=== PATIENT | female | born 1970 | race Caucasian/White ===

== ENCOUNTER → 2017-08-10 | Outpatient (CLI) | payer OTHER ==
[~2017-08-10] MED LIST: ALBU90OI INH; ALBU90OI6 INH; ALBU90OI61 INH; ALPR1 PO; Augmentin 875-1 EACH PO; Bactrim Ds Tab1 EACH PO; CIPRO500 MG PO; CYCL10 PO; DOXY100 PO; DULERA 100 MCG/13 GM INH; ESCI10 PO; FAMO20 PO; GABA300 PO; IBUP600 PO; LEVFLO500 PO; LORA10ER PO; Levaquin500 MG PO; Lexapro PO; MONT10T PO; Norco 5-325 Ta1 EACH PO; ONDA8ODT MM; OXYC5 PO; PRED10 PO; PRED20 PO; PROM25 PO; Percocet 10-321 EACH PO; Prednisone20 MG PO; TIOT18; TRAM50 PO; Zofran8 MG PO
[2017-08-10 18:25] LABS: BASOPHILS ABSOLUTE AUTO 0.03 K/mm3 (0.00-0.23); BASOPHILS PERCENT AUTO 0 % (0-2); EOSINOPHILS PERCENT AUTO 0 % (0-6); Hematocrit 43.1 % (33.0-51.0); IMMATURE GRAN ABSOLUTE AUTO 0.04 K/mm3 (0.00-0.10); IMMATURE GRAN PERCENT AUTO 0 % (0-1); LYMPHOCYTES ABSOLUTE AUTO 1.44 K/mm3 (0.84-5.20); LYMPHOCYTES PERCENT AUTO 14 % (21-46); MONOCYTES PERCENT AUTO 4 % (4-13); Mean Corpuscular HGB 32.5 pg (26.0-34.0); Mean Corpuscular HGB Conc 34.8 g/dL (31.5-36.5); Mean Corpuscular Volume 93 fL (80-100); Mean Platelet Volume 10.1 fL (9.1-12.4); NEUTROPHILS ABSOLUTE AUTO 8.43 K/mm3 (1.96-9.15); NEUTROPHILS PERCENT AUTO 82 % (41-73); Platelet Count 248 K/mm3 (150-400); RDW Coefficient Variation 12.5 % (11.7-14.2); Red Blood Cell Count 4.62 M/mm3 (3.80-5.20); White Blood Cell Count 10.34 K/mm3 (4.00-11.30)
[2017-08-10 18:38] LABS: Alanine Aminotransfer (ALT/SGP 33 U/L (12-78); Albumin, Blood 3.7 g/dL (3.4-5.0); Alk Phos 63 U/L (40-126); Anion Gap 11 mmol/L (6-16); Aspartate Aminotrans (AST/SGOT 29 U/L (12-37); Bilirubin, Total 0.6 mg/dL (0.1-1.0); Blood Urea Nitrogen 7 mg/dL (8-24); Bun/Creatinine Ratio 11.3 (12.0-20.0); CO2, Blood 27 mmol/L (21-32); Calcium, Blood 8.6 mg/dL (8.5-10.1); Chloride, Blood 101 mmol/L (98-108); Creatinine, Blood 0.62 mg/dL (0.40-1.00); Globulin, Blood 3.8 g/dL (2.2-4.0); Glomerular Filtration Rate >60 (60-); Glucose, Blood 93 mg/dL (70-99); Sodium, Blood 139 mmol/L (136-145); Total Protein, Blood 7.5 g/dL (6.4-8.2)
[2017-08-10 18:39] LABS: Troponin I <0.017 ng/mL (0.000-0.040)
== END | disposition home or self-care (01) ==
LOC: LAB EV 18:19 → LAB SHORT 18:19
PROVIDERS: Physician Assistant Medical
DX: R10.13 Epigastric pain (principal)
CPT/HCPCS: 80053; 83690; 84484; 85025

== ENCOUNTER 2018-07-15 07:44 | Emergency (ER) | payer OTHER ==
[~2018-07-15] VITALS: Ht 165.1 cm; Wt 81.7 kg
[2018-07-15] MEDS ORDERED: Abilify2 MG PO (08:20)
[2018-07-15 09:26] LABS: Source, Urine Clean Catch
[2018-07-15 09:33] LABS: Appearance, Urine Clear (Clear); Bilirubin, Urine Neg (Neg); Blood, Urine Neg (Neg); Color, Urine Yellow (P-Yellow); Glucose Qualitative, Urine Neg (Neg); Ketones, Urine Neg (Neg); Leukocyte Esterase, Urine Neg (Neg); Nitrite, Urine Neg (Neg); Protein, Urine Neg (Neg); Urobilinogen, Urine NORM (Normal)
[2018-07-15 09:58] LABS: Alanine Aminotransfer (ALT/SGP 26 U/L (12-78); Albumin, Blood 3.8 g/dL (3.4-5.0); Alk Phos 61 U/L (50-136); Anion Gap 5 mmol/L (6-16); Aspartate Aminotrans (AST/SGOT 16 U/L (12-37); Bilirubin, Total 0.9 mg/dL (0.1-1.0); Blood Urea Nitrogen 10 mg/dL (8-24); CO2, Blood 28 mmol/L (21-32); Calcium, Blood 8.9 mg/dL (8.5-10.1); Chloride, Blood 99 mmol/L (98-108); Creatinine, Blood 0.56 mg/dL (0.40-1.00); Globulin, Blood 3.8 g/dL (2.2-4.0); Glomerular Filtration Rate >60 (60-); Glucose, Blood 93 mg/dL (70-99); Potassium, Blood 4.1 mmol/L (3.5-5.5); Sodium, Blood 132 mmol/L (136-145); Total Protein, Blood 7.6 g/dL (6.4-8.2)
[2018-07-15 10:01] LABS: BASOPHILS ABSOLUTE AUTO 0.06 K/mm3 (0.00-0.23); BASOPHILS PERCENT AUTO 0 % (0-2); EOSINOPHILS ABSOLUTE AUTO 0.12 K/mm3 (0.00-0.68); EOSINOPHILS PERCENT AUTO 1 % (0-6); Hematocrit 41.2 % (33.0-51.0); Hemoglobin 13.5 g/dL (11.5-16.0); IMMATURE GRAN ABSOLUTE AUTO 0.05 K/mm3 (0.00-0.10); IMMATURE GRAN PERCENT AUTO 0 % (0-1); LYMPHOCYTES ABSOLUTE AUTO 1.86 K/mm3 (0.84-5.20); LYMPHOCYTES PERCENT AUTO 14 % (21-46); MONOCYTES ABSOLUTE AUTO 1.09 K/mm3 (0.16-1.47); MONOCYTES PERCENT AUTO 8 % (4-13); Mean Corpuscular HGB 31.8 pg (26.0-34.0); Mean Corpuscular HGB Conc 32.8 g/dL (31.5-36.5); Mean Corpuscular Volume 97 fL (80-100); Mean Platelet Volume 9.9 fL (9.1-12.4); NEUTROPHILS ABSOLUTE AUTO 10.53 K/mm3 (1.96-9.15); NEUTROPHILS PERCENT AUTO 77 % (41-73); Platelet Count 221 K/mm3 (150-400); RDW Coefficient Variation 13.4 % (11.7-14.2); RDW Standard Deviation 48.2 fL (35.1-46.3); Red Blood Cell Count 4.25 M/mm3 (3.80-5.20); White Blood Cell Count 13.71 K/mm3 (4.00-11.30)
[2018-07-15] MEDS ORDERED: Norco 5-325 Ta1 EACH PO (12:34)
[2018-07-15] MEDS ORDERED: Bactrim 400-801 EACH PO (12:34)
[2018-07-15] MEDS ORDERED: Keflex500 MG PO (12:34)
== END 2018-07-15 13:20 | disposition home or self-care (01) ==
LOC: ER 07:44
PROVIDERS: Emergency Medicine
DX: K61.1 Rectal abscess (principal); J44.9 Chronic obstructive pulmonary disease, unspecified; F17.210 Nicotine dependence, cigarettes, uncomplicated; Z79.899 Other long term (current) drug therapy; Z90.710 Acquired absence of both cervix and uterus
CPT/HCPCS: 36415; 56405; 76882; 80053; 81003; 81025; 85025; 99283-25; J1170; J2405; J7120

== ENCOUNTER 2019-01-11 14:02 | Inpatient (IN) | payer OTHER ==
[~2019-01-11] VITALS: Ht 165.1 cm; Wt 92.2 kg
[~2019-01-11 14:02] MED LIST changes: +Abilify2 MG PO; +Bactrim 400-801 EACH PO; +Keflex500 MG PO
[2019-01-11 14:41] LABS: BASOPHILS ABSOLUTE AUTO 0.07 K/mm3 (0.00-0.23); BASOPHILS PERCENT AUTO 1 % (0-2); EOSINOPHILS ABSOLUTE AUTO 0.32 K/mm3 (0.00-0.68); EOSINOPHILS PERCENT AUTO 4 % (0-6); Hematocrit 44.6 % (33.0-51.0); Hemoglobin 14.5 g/dL (11.5-16.0); IMMATURE GRAN ABSOLUTE AUTO 0.03 K/mm3 (0.00-0.10); IMMATURE GRAN PERCENT AUTO 0 % (0-1); LYMPHOCYTES PERCENT AUTO 19 % (21-46); MONOCYTES ABSOLUTE AUTO 0.52 K/mm3 (0.16-1.47); MONOCYTES PERCENT AUTO 6 % (4-13); Mean Corpuscular HGB 31.7 pg (26.0-34.0); Mean Corpuscular HGB Conc 32.5 g/dL (31.5-36.5); Mean Corpuscular Volume 97 fL (80-100); Mean Platelet Volume 9.9 fL (9.1-12.4); NEUTROPHILS ABSOLUTE AUTO 6.15 K/mm3 (1.96-9.15); NEUTROPHILS PERCENT AUTO 70 % (41-73); Platelet Count 265 K/mm3 (150-400); Red Blood Cell Count 4.58 M/mm3 (3.80-5.20); White Blood Cell Count 8.79 K/mm3 (4.00-11.30)
[2019-01-11] MEDS ORDERED: ESCI10 PO (14:51)
[2019-01-11] MEDS ORDERED: OMEP20ER PO (14:52)
[2019-01-11] MEDS ORDERED: VENL75ER PO (14:52)
[2019-01-11] MEDS ORDERED: TRAZ100 PO (14:52)
[2019-01-11 15:01] LABS: Alanine Aminotransfer (ALT/SGP 36 U/L (12-78); Albumin, Blood 3.8 g/dL (3.4-5.0); Albumin/Globulin Ratio 1.1 (0.8-1.8); Alk Phos 50 U/L (50-136); Anion Gap 7 mmol/L (6-16); Aspartate Aminotrans (AST/SGOT 21 U/L (12-37); Bilirubin, Total 0.2 mg/dL (0.1-1.0); Blood Urea Nitrogen 8 mg/dL (8-24); Bun/Creatinine Ratio 14.6 (12.0-20.0); CO2, Blood 29 mmol/L (21-32); Calcium, Blood 9.2 mg/dL (8.5-10.1); Chloride, Blood 105 mmol/L (98-108); Creatinine, Blood 0.55 mg/dL (0.40-1.00); Globulin, Blood 3.6 g/dL (2.2-4.0); Glomerular Filtration Rate >60 (60-); Glucose, Blood 124 mg/dL (70-99); Potassium, Blood 4.1 mmol/L (3.5-5.5); Sodium, Blood 141 mmol/L (136-145); Total Protein, Blood 7.4 g/dL (6.4-8.2)
--- NOTE | 2019-01-11 18:06 | NUR ---
PT ADMITTED/SHIFT SUMMARY PT ADMITTED AT 1725. PT IN STABLE CONDITION WITH VSS. PT ORIENTED TO ROOM. CALL LIGHT IN REACH. PT EATING DINNER AT THIS TIME. PT CURRENTLY ON 1L O2 VIA NC TO MAINTAIN 92% SATURATION. IV ANTIBIOTICS STARTED. CONT PULSE OX IN PLACE. WILL CONTINUE TO MONITOR UNTIL TURNOVER IS COMPLETE.
--- NOTE | 2019-01-12 04:57 | NUR ---
CLINICAL NURSING DIRECTOR SUMMARY PT A/OX4. PLEASANT AND COOPERATIVE. PT HAD TEMP OF 99.0 AT BEGINNING OF SHIFT AND HR IN THE 110'S. PT ALSO RECIEVED BREATHING TREATMENTS PRIOR TO VITALS. DENIES SOB. PT STATED SHE FELT FEVERISH, DENIES CHILLS. WET WASHCLOTH APPLIED TO FOREHEAD. PT STATED SHE FELT BETTER AFTER WET WASHCLOTH APPLIED. VITALS STABLE THIS MORNING. SLEPT WELL THROUGHOUT THE NIGHT. WILL CONTINUE TO MONITOR. CURRENTLY ON 1 L O2 AND CONTINOUS PULSE OX.
[2019-01-12 05:00] LABS: BASOPHILS ABSOLUTE AUTO 0.03 K/mm3 (0.00-0.23); BASOPHILS PERCENT AUTO 0 % (0-2); EOSINOPHILS PERCENT AUTO 0 % (0-6); Hematocrit 42.3 % (33.0-51.0); Hemoglobin 13.8 g/dL (11.5-16.0); IMMATURE GRAN ABSOLUTE AUTO 0.08 K/mm3 (0.00-0.10); IMMATURE GRAN PERCENT AUTO 1 % (0-1); LYMPHOCYTES ABSOLUTE AUTO 1.34 K/mm3 (0.84-5.20); LYMPHOCYTES PERCENT AUTO 10 % (21-46); MONOCYTES ABSOLUTE AUTO 0.62 K/mm3 (0.16-1.47); MONOCYTES PERCENT AUTO 5 % (4-13); Mean Corpuscular HGB 32.5 pg (26.0-34.0); Mean Corpuscular HGB Conc 32.6 g/dL (31.5-36.5); Mean Platelet Volume 10.1 fL (9.1-12.4); NEUTROPHILS ABSOLUTE AUTO 11.15 K/mm3 (1.96-9.15); NEUTROPHILS PERCENT AUTO 84 % (41-73); Platelet Count 281 K/mm3 (150-400); RDW Coefficient Variation 13.2 % (11.7-14.2); RDW Standard Deviation 48.4 fL (35.1-46.3); Red Blood Cell Count 4.25 M/mm3 (3.80-5.20); White Blood Cell Count 13.22 K/mm3 (4.00-11.30)
[2019-01-12 05:05] LABS: Mean Corpuscular Volume 100 fL (80-100)
[2019-01-12 05:32] LABS: Alanine Aminotransfer (ALT/SGP 31 U/L (12-78); Albumin, Blood 3.6 g/dL (3.4-5.0); Alk Phos 42 U/L (50-136); Anion Gap 9 mmol/L (6-16); Aspartate Aminotrans (AST/SGOT 14 U/L (12-37); Bilirubin, Total 0.2 mg/dL (0.1-1.0); Blood Urea Nitrogen 11 mg/dL (8-24); Bun/Creatinine Ratio 18.5 (12.0-20.0); CO2, Blood 27 mmol/L (21-32); Calcium, Blood 9.2 mg/dL (8.5-10.1); Chloride, Blood 104 mmol/L (98-108); Globulin, Blood 3.6 g/dL (2.2-4.0); Glomerular Filtration Rate >60 (60-); Glucose, Blood 114 mg/dL (70-99); Potassium, Blood 4.4 mmol/L (3.5-5.5); Sodium, Blood 140 mmol/L (136-145); Total Protein, Blood 7.2 g/dL (6.4-8.2)
--- NOTE | 2019-01-12 09:00 | NUR ---
LEFT MESSAGE ON 'S VOICE MAIL THAT PATIENT IS A SMOKER AND WOULD LIKE NICOTINE PATCH. SMOKES ABOUT 7 CIGS A DAY. AWAITING CALLBACK OR ORDERS.
--- NOTE | 2019-01-12 19:13 | NUR ---
ALERT. ORIENTED. ON CONTINUOUS SAT. INS/EXP WHEEZES T/O. STEADY GAIT IN HALLWAY AND HAS BEEN OUTSIDE TODAY. INDEPENDENT IN SHOWER. ABLE TO MAKE NEEDS KNOWN. REPORT TO NIGHT RN
--- NOTE | 2019-01-13 04:03 | NUR ---
SHIFT SUMMARY PT CONTINUES TO HAVE WHEEZES NOTED. PT HAS BEEN ABLE TO SLEEP THIS SHIFT. PT MAY BENEFIT FROM HAVING A HOME O2 EVAL DONE. PT HAD NO NEW ISSUES OR COMPLAINTS. PT RESPONDS WELL TO BREATHING TX'S. PT CURRENTLY RESTING AND BREATHING EASY. CALL LIGHT IN REACH.
--- NOTE | 2019-01-13 17:26 | NUR ---
SHIFT SUMMARY COARSE LUNG SOUNDS. SMOKER WITH NICOTINE PATCH IN PLACE. INDEPENDENT IN ROOM. OX4. PLEASANT. DENIES ANY PAIN. POSSIBLE HOME 02 EVAL PRIOR TO DISCHARGE.
--- NOTE | 2019-01-14 04:44 | NUR ---
SHIFT SUMMARY PT REPORTS FEELING BETTER THIS SHIFT. PT HAS BEEN ABLE TO SLEEP WELL THIS SHIFT. PT LS STILL COARSE WITH WHEEZES. PT RESPONDS WELL TO RT TX'S. PT CURRENTLY RESTING COMFORTABLY. CALL LIGHT IN REACH.
[2019-01-14] MEDS ORDERED: ACET325 PO (12:23)
[2019-01-14] MEDS ORDERED: BENZ100A PO (12:24)
[2019-01-14] MEDS ORDERED: GUAI600T33 PO (12:25)
[2019-01-14] MEDS ORDERED: Nicoderm Cq1 EAC1 TOP (12:26)
[2019-01-14] MEDS ORDERED: ALBU2.5V5 INH (12:28)
[2019-01-14] MEDS ORDERED: Prednisone10 MG PO (12:34)
[2019-01-14] MEDS ORDERED: Sulfamethoxazo1 EAC4 PO (12:35)
[2019-01-14] MEDS ORDERED: SPIRIVA RESPIMAT4 GM INH (12:36)
--- NOTE | 2019-01-14 14:42 | NUR ---
PT LEFT UNIT AT 1430. PT AMBULATED PER REQUEST WITH FRIEND. REVIEWED DISCHARGE INSTRUCTIONS. NO QUESTIONS AT THIS TIME. MEDICATIONS FAXED TO [facility] IN [place]. IV REMOVED.
== END 2019-01-14 14:45 | disposition home or self-care (01) | DRG 189 ==
LOC: ER 14:02 → MEDS 16:42 → ENPENDDIS 01-14 11:08 → MEDS 01-14 14:45
PROVIDERS: Physician Assistant; ADMIT Internal Medicine
DX: J96.21 Acute and chronic respiratory failure with hypoxia (principal); J44.1 Chronic obstructive pulmonary disease with (acute) exacerbation; J44.0 Chronic obstructive pulmonary disease with (acute) lower respiratory infection; B95.62 Methicillin resistant Staphylococcus aureus infection as the cause of diseases classified elsewhere; F17.210 Nicotine dependence, cigarettes, uncomplicated; F41.9 Anxiety disorder, unspecified; J20.9 Acute bronchitis, unspecified
CPT/HCPCS: 36415; 71046; 80053; 85025; 87070; 87077; 87147; 87186; 87205; 90686; 93005; 93010; 94640; 94644; 94762; 96374; 99285-25; A9270; J0696; J1650; J2405; J2930; J7050; J7512

== ENCOUNTER 2019-02-18 13:32 | Inpatient (IN) | payer OTHER ==
[~2019-02-18] VITALS: Ht 165.1 cm; Wt 96.2 kg
[~2019-02-18 13:32] MED LIST changes: +ACET325 PO; +ALBU2.5V5 INH; +BENZ100A PO; +GUAI600T33 PO; +NICO21TP TOP; +OMEP20ER PO; +Prednisone10 MG PO; +SPIRIVA RESPIMAT4 GM INH; +Sulfamethoxazo1 EAC4 PO; +TRAZ100 PO; +VENL75ER PO
[2019-02-18 14:09] LABS: BASOPHILS ABSOLUTE AUTO 0.04 K/mm3 (0.00-0.23); BASOPHILS PERCENT AUTO 0 % (0-2); EOSINOPHILS ABSOLUTE AUTO 0.27 K/mm3 (0.00-0.68); EOSINOPHILS PERCENT AUTO 2 % (0-6); Hematocrit 45.8 % (33.0-51.0); Hemoglobin 14.6 g/dL (11.5-16.0); IMMATURE GRAN ABSOLUTE AUTO 0.06 K/mm3 (0.00-0.10); IMMATURE GRAN PERCENT AUTO 1 % (0-1); LYMPHOCYTES ABSOLUTE AUTO 2.94 K/mm3 (0.84-5.20); LYMPHOCYTES PERCENT AUTO 27 % (21-46); MONOCYTES ABSOLUTE AUTO 0.79 K/mm3 (0.16-1.47); MONOCYTES PERCENT AUTO 7 % (4-13); Mean Corpuscular HGB 31.9 pg (26.0-34.0); Mean Corpuscular HGB Conc 31.9 g/dL (31.5-36.5); Mean Corpuscular Volume 100 fL (80-100); Mean Platelet Volume 9.7 fL (9.1-12.4); NEUTROPHILS ABSOLUTE AUTO 7.01 K/mm3 (1.96-9.15); NEUTROPHILS PERCENT AUTO 63 % (41-73); Platelet Count 296 K/mm3 (150-400); RDW Standard Deviation 48.5 fL (35.1-46.3); Red Blood Cell Count 4.57 M/mm3 (3.80-5.20); White Blood Cell Count 11.11 K/mm3 (4.00-11.30)
[2019-02-18 14:25] LABS: PCO2 Arterial 59.5 mmHg (35-45); PO2 Arterial 95.7 mmHg (80-100); pH Blood Arterial 7.33 (7.35-7.45)
[2019-02-18 14:42] LABS: Alanine Aminotransfer (ALT/SGP 30 U/L (12-78); Alk Phos 53 U/L (50-136); Anion Gap 5 mmol/L (6-16); Aspartate Aminotrans (AST/SGOT 17 U/L (12-37); Bilirubin, Total 0.1 mg/dL (0.1-1.0); Blood Urea Nitrogen 11 mg/dL (8-24); Bun/Creatinine Ratio 18.7 (12.0-20.0); CO2, Blood 30 mmol/L (21-32); Calcium, Blood 9.7 mg/dL (8.5-10.1); Chloride, Blood 102 mmol/L (98-108); Creatinine, Blood 0.59 mg/dL (0.40-1.00); Globulin, Blood 4.1 g/dL (2.2-4.0); Glomerular Filtration Rate >60 (60-); Glucose, Blood 109 mg/dL (70-99); Potassium, Blood 4.4 mmol/L (3.5-5.5); Sodium, Blood 137 mmol/L (136-145); Total Protein, Blood 8.1 g/dL (6.4-8.2)
[2019-02-18] MEDS ORDERED: Prinivil10 MG PO (15:25)
[2019-02-18] MEDS ORDERED: Desyrel150 MG PO (16:02)
--- NOTE | 2019-02-18 18:47 | NUR ---
PT ARRIVAL. PT ARRIVED ON UNIT VIA GURNEY. PT WAS ON BIPAP AT 12/6 AND 30% FIO2. PT WAS C/O OF HEADACHE AND L SIDE/RIB PAIN FROM COUGHING. PT'S VS STABLE AT THIS TIME. L/S WHEEZES T/O ON BIPAP OR 4L NC. PT'S BASELINE O2 IS 1-2L NC. NO EDEMA IS NOTED ON ASSESSMENT. BT PRESENT AND HYPOACTIVE PT C/O OF NAUSEA. PT MEDICATED FOR PAIN AND NAUSEA PER EMAR. PT'S SISTER AT THE BEDSIDE. PT IS ABLE TO TALK IN SHORT SENTENCES BUT DESATS QUICKLY WITH TO MUCH TALKING. CALL LIGHT IN REACH, BED IS LOCKED AND LOW WILL CONTINUE TO MONITOR UNTIL REPORT IS GIVEN TO ONCOMING RN.
--- NOTE | 2019-02-18 20:27 | NUR ---
ASSUMED CARE OF PATIENT AT 1900 HRS, PATIENT AWAKE AND ALERT SITTING SIDE OF BED WITH SISTER IN ROOM. HR AND RESP'S ELEVATED, NO SIGNS NO REPORT OF DISTRESS, ALL OTHER VSS AND WNL. LUNGS SOUND COARSE WITH WHEEZES. PT C/O MILD HEADACHE AND LEFT ABD PAIN WHICH STARTED WITH A RECENT COUGHING FIT. WILL TREAT PER UNIT PROTOCOL AND MD ORDER, AND CONTINUE TO MONITOR.
--- NOTE | 2019-02-19 02:12 | NUR ---
AT MIDNIGHT ROUNDS PT C/O PAIN WITH COUGH, PAIN CENTERED LOWER LEFT ABD AT RIBS. PATIENT STATES PAIN ONLY WITH COUGH, AND THAT SHE GREATLY FEARS COUGHING. PT REPORTS COUGH MEDECINE "PEARLS" WORKED, BUT NOT COMPLETELY. A STRONGER COUGH SUPPRESSANT WAS APPROVED BY HOSPITALIST, PATIENT MEDICATED PER EMAR WITH NEW MED, AT 1/2 HOUR ASSESSMENT PATIENT SLEEPING.
[2019-02-19 04:25] LABS: BASOPHILS ABSOLUTE AUTO 0.03 K/mm3 (0.00-0.23); BASOPHILS PERCENT AUTO 0 % (0-2); EOSINOPHILS ABSOLUTE AUTO 0.01 K/mm3 (0.00-0.68); EOSINOPHILS PERCENT AUTO 0 % (0-6); Hematocrit 41.1 % (33.0-51.0); Hemoglobin 13.2 g/dL (11.5-16.0); IMMATURE GRAN ABSOLUTE AUTO 0.07 K/mm3 (0.00-0.10); IMMATURE GRAN PERCENT AUTO 1 % (0-1); LYMPHOCYTES ABSOLUTE AUTO 1.11 K/mm3 (0.84-5.20); LYMPHOCYTES PERCENT AUTO 9 % (21-46); MONOCYTES ABSOLUTE AUTO 0.45 K/mm3 (0.16-1.47); MONOCYTES PERCENT AUTO 4 % (4-13); Mean Corpuscular HGB 32.2 pg (26.0-34.0); Mean Corpuscular HGB Conc 32.1 g/dL (31.5-36.5); Mean Corpuscular Volume 100 fL (80-100); Mean Platelet Volume 9.7 fL (9.1-12.4); NEUTROPHILS ABSOLUTE AUTO 10.54 K/mm3 (1.96-9.15); NEUTROPHILS PERCENT AUTO 86 % (41-73); Platelet Count 273 K/mm3 (150-400); RDW Coefficient Variation 13.2 % (11.7-14.2); RDW Standard Deviation 48.7 fL (35.1-46.3); White Blood Cell Count 12.21 K/mm3 (4.00-11.30)
[2019-02-19 04:40] LABS: Anion Gap 6 mmol/L (6-16); Blood Urea Nitrogen 12 mg/dL (8-24); Bun/Creatinine Ratio 22.6 (12.0-20.0); CO2, Blood 30 mmol/L (21-32); Calcium, Blood 9.4 mg/dL (8.5-10.1); Chloride, Blood 99 mmol/L (98-108); Creatinine, Blood 0.53 mg/dL (0.40-1.00); Glomerular Filtration Rate >60 (60-); Glucose, Blood 128 mg/dL (70-99); Potassium, Blood 4.4 mmol/L (3.5-5.5); Sodium, Blood 135 mmol/L (136-145)
--- NOTE | 2019-02-19 05:58 | NUR ---
SHIFT SUMMARY NO ACUTE CHANGES IN PATIENT CONDITION SINCE ASSUMING CARE. AT AROUND 0500 PATIENT RETURNED FROM BATHROOM AND REQUESTED A BREAK FROM BIPAP, ELECTING TO SLEEP THE REMAINDER OF THE SHIFT WITH NC AT 4L, SHE FEELS CLAUSTROBPHOBIC WHITHIN THE BIPAP MASK. PT WAS EDUCATED TO THE BENEFITS OF BIPAP, AND MADE AWARE THAT IF HER SATS DROPPED BELOW 88% SHE WOULD RETURN TO THE BIPAP. PATIENT IS CURRENTLY SATURATING AT 94%, AND SLEEPING PEACEFULLY ON HER SIDE. ONLY ONE EPISODE OF COUGHING NOTED SINCE PT RECEIVED NEWLY ORDERED COUGH MEDICATION. WILL CONTINUE TO MONITOR AND WILL PASS REPORT AND CARE TO ONCOMING SHIFT AT 0700. BED IS LOCKED AND LOW, CALL LIGHT W/IN REACH
--- NOTE | 2019-02-19 17:41 | NUR ---
PT HAS MAINTAINED ADEQUATE SPO2 ON 4L NASAL CANNULA T/O THE DAY, PT WAS PLACED ON BIPAP FOR A BRIEF TIME WHICH WAS TOLERATED WELL. PT A/O X4 ANSWERING QUESTIONS APPROPRIATELY. PT DID BECOME VERY WHEEZY THIS AFTERNOON WHICH WAS RESOLVED WITH BREATHING TREATMENT. PT HASREQUIRED PAIN MEDICATION X TODAY FOR PAIN T/O BODY. STS SHE HAS CHRONIC PAIN ISSUES AT BASELINE
--- NOTE | 2019-02-19 19:45 | NUR ---
ASSUMED CARE OF PATIENT AT 1900 WITH REPORT FROM SHASHANK CLEMONS, PATIENT AWAKE AND ALERT SITING IN BED DISPLAYING MILD DYSPNEA, AUDIBLE WHEEZES WITH HER EXPIRATION. RESP'S TACHY AT 22/MIN, PULSE TACHY AT 97, ALL OTHER VSS AND WNL, 02 SATURATION AT 94% ON 4L VIA NC. PT REPORTS PAIN IN NECK AND HEAD IN ADDITION TO PAIN IN LEFT SIDE WHEN SHE COUGHS, CONSISTENT WITH HER RECENT HISTORY. BOTH PATIENT'S IV'S TESTED PATENT W/ 10NS AND SITES WNL. PATIENT'S SISTER IS IN ROOM. WILL MONITOR AND TREAT PER EMAR AND PROTOCOL
--- NOTE | 2019-02-20 05:53 | NUR ---
SHIFT SUMMARY PATIENT REMAINED IN BED EXCEPT FOR INDEPENDENT AMBULATION TO TOILET, ABOUT 4 TIMES PER PT REPORT. ONE EPISODE OF INCONTINENCE BROUGHT ABOUT BY COUGHING. PATIENT USES ROLLED BLANKET TO SPLINT SIDE WHEN COUGHING, BUT "DREADS" ONCOMING COUGHING FITS AND RATES PAIN TO LOWER LEFT RIBS WHILE COUGHING AT 9/10. WITH STATED PRIORITY OF GATHERING MAXIMUM REST AND SLEEP THIS NIGHT, PATIENT REQUESTED COUGH MEDICINE AND FENTANYL FREQUENTLY PRN EMAR ORDER ALLOWED. PATIENT UTILIZED BPAP WHEN SLEEPING, OR ATTEMPTING TO SLEEP, CHANGING TO 4L/NC DURING AND BRIEFLY AFTER EPISODES OF COUGHING. SATURATION LEVELS REMAINED ABOVE 90% FOR THE DURATION OF THE SHIFT. ADVENTITIOUS LUNG SOUNDS SUBSIDED PERIODICALLY T/O SHIFT, WITH AUDIBLE WHEEZES HEARD DURING PERIODS OF STRESS. OVERALL PATIENT REMAINED HOPEFUL, STATING THAT PAIN WHILE COUGHING WAS GENERALLY LESSENING, AND THAT REST AND MEDICATION WERE HELPING HER TO FEEL BETTER AND STRONGER. WILL CONTINUE TO ASSESS, MONITOR AND TREAT PER EMAR AND PROTOCOL UNTIL PASSING CARE AND REPORT TO ONCOMING SHIFT. BED IS LOCKED AND LOW, CALL LIGHT W/IN REACH
--- NOTE | 2019-02-20 08:03 | NUR ---
AM NOTE... ASSUMED CARE OF PT APROX 0700. PT IS A&Ox4 AND IND IN THE ROOM. PT WAS ADMITTED FOR COPD EXAC. PT WAS ON 4L NC, PT WAS TITRATED DOWN TO 3L NC WITH O2 SAT AT 92%. BIPAP IS AT THE BEDSIDE. L/S WHEEZES T/O DIM IN THE BASES, PT BECOMES DYSPNIC WITH ACTIVITY. NO EDEMA NOTED ON ASSESSMENT. BT PRESENT AND NORMOACTIVE. PT C/O OF 8/10 PAIN WITH COUGH TO THE LEFT SIDE/RIB, PT EDUCATED ON SPLINTING THE AREA WHEN COUGHING, PT VERBALIZED HER UNDERSTANDING, PT ALSO EDUCATED ON PAIN MANAGMENT AND EXPECTATIONS OF PAIN RELEIF. CALL LIGHT IN REACH, WILL CONTINUE TO MONITOR.
--- NOTE | 2019-02-20 19:32 | NUR ---
SHIFT SUMMARY,. NO ACUTE NEGATIVE CHANGES NOTED THIS SHIFT. PT HAS BEEN TITRATED FROM 4L NC TO 1L NC WHICH IS HER BASELINE. PT'S VS STABLE AND SHE IS IND IN THE ROOM. CALL LIGHT IN REACH. WILL CONTTINUE TO MONITOR.
--- NOTE | 2019-02-20 21:00 | NUR ---
Yell of Care: Care assumed at 1900hr. Patient alert and oriented x4, sitting upright in bed watching tv. Denies pain except to left ribs with coughing, not requiring any interventions at this time. Denies dyspnea/sob. VSS, O2 94-96^ on 1L/nc. Congested occasional cough, non-productive r/t weak cough and pain. D/c'd peripheral IV to lt AC r/t leaking. Independent in room, makes needs known. Will continue to monitor.
[2019-02-21 03:49] LABS: BASOPHILS ABSOLUTE AUTO 0.02 K/mm3 (0.00-0.23); BASOPHILS PERCENT AUTO 0 % (0-2); EOSINOPHILS PERCENT AUTO 0 % (0-6); Hematocrit 41.3 % (33.0-51.0); Hemoglobin 12.8 g/dL (11.5-16.0); IMMATURE GRAN ABSOLUTE AUTO 0.09 K/mm3 (0.00-0.10); IMMATURE GRAN PERCENT AUTO 1 % (0-1); LYMPHOCYTES ABSOLUTE AUTO 1.03 K/mm3 (0.84-5.20); LYMPHOCYTES PERCENT AUTO 8 % (21-46); MONOCYTES ABSOLUTE AUTO 0.24 K/mm3 (0.16-1.47); MONOCYTES PERCENT AUTO 2 % (4-13); Mean Corpuscular HGB 31.4 pg (26.0-34.0); Mean Corpuscular Volume 102 fL (80-100); Mean Platelet Volume 9.8 fL (9.1-12.4); NEUTROPHILS ABSOLUTE AUTO 11.07 K/mm3 (1.96-9.15); NEUTROPHILS PERCENT AUTO 89 % (41-73); Platelet Count 263 K/mm3 (150-400); RDW Coefficient Variation 13.2 % (11.7-14.2); RDW Standard Deviation 49.2 fL (35.1-46.3); Red Blood Cell Count 4.07 M/mm3 (3.80-5.20); White Blood Cell Count 12.45 K/mm3 (4.00-11.30)
--- NOTE | 2019-02-21 05:17 | NUR ---
Shift Summary: Patient slept well throughout shift. C/o pain to lt ribs when coughing, x1 prn [place] and prn cough syrup given with good effect noted. Continues to deny dyspnea/SOB. VSS, O2- 93-96% on 1L/NC when awake, BiPAP with 4L bleed in while sleeping. Independent in room, adjust own position in bed, makes needs known. Will continue to monitor until report to day shift RN.
--- NOTE | 2019-02-21 08:05 | NUR ---
AM NOTE. ASSUMED CARE OF PT APROX 0700. PT IS A&Ox4 AND IND IN THE ROOM. PT IS ON 1L NC AND RA AT TIMES. L/S COARSE RHONCHI T/O AND SCATTERED WHEEZES. PT'S VS STABLE. PT IS ANXIOUS TO D/C HOME TODAY. CALL LIGHT IN REACH WILL CONTINUE TO MONITOR.
--- NOTE | 2019-02-21 11:48 | NUR ---
PT GAVE ME PERMISSION TO HELP WITH HER CARE 02/21/2019.
[2019-02-21] MEDS ORDERED: BENZ100A PO (14:17)
[2019-02-21] MEDS ORDERED: DOXY100 PO (14:25)
[2019-02-21] MEDS ORDERED: BUDE10.22 INH (14:27)
[2019-02-21] MEDS ORDERED: Prednisone10 MG PO (14:31)
== END 2019-02-21 16:07 | disposition home or self-care (01) | DRG 189 ==
LOC: ER 13:32 → PCU 15:46
PROVIDERS: Emergency Medicine; ADMIT Student in an Organized Health Care Education/Training Program
PROC: 5A09357 Assistance with Respiratory Ventilation, Less than 24 Consecutive Hours, Continuous Positive Airway Pressure (ICD-10-PCS; principal; 2019-02-18)
DX: J96.21 Acute and chronic respiratory failure with hypoxia (principal); J44.1 Chronic obstructive pulmonary disease with (acute) exacerbation; E87.2 Acidosis; G47.33 Obstructive sleep apnea (adult) (pediatric); F41.9 Anxiety disorder, unspecified; G89.29 Other chronic pain; F17.211 Nicotine dependence, cigarettes, in remission; Z99.81 Dependence on supplemental oxygen
CPT/HCPCS: 36415; 36600; 71045; 80048; 80053; 82803; 85025; 93005; 93010; 94640; 94660; 94664; 94667; 94760; 94762; 96365; 96375; 98960; 99285-25; 99407; A9270; A9270-GY; J1650; J2060; J2405; J2930; J3010; J3475; J7512

== ENCOUNTER 2019-03-11 08:50 | Emergency (ER) | payer OTHER ==
[~2019-03-11] VITALS: Ht 165.1 cm; Wt 97.5 kg
[~2019-03-11 08:50] MED LIST changes: +BUDE10.22 INH; +Desyrel150 MG PO; +Prinivil10 MG PO
[2019-03-11] MEDS ORDERED: Bactrim Ds Tab1 EACH PO (09:24)
[2019-03-11] MEDS ORDERED: PROBIOTIC1 EAC1 PO (09:24)
[2019-03-11] MEDS ORDERED: Keflex500 MG PO (09:24)
[2019-03-11] MEDS ORDERED: Norco 5-325 Ta1 EACH PO (09:24)
[2019-03-12] MEDS ORDERED: VENL25 PO (19:48)
== END 2019-03-11 09:44 | disposition home or self-care (01) ==
LOC: ER 08:50
DX: L03.116 Cellulitis of left lower limb (principal); J44.9 Chronic obstructive pulmonary disease, unspecified; F41.9 Anxiety disorder, unspecified; K21.9 Gastro-esophageal reflux disease without esophagitis; Z87.891 Personal history of nicotine dependence; Z88.8 Allergy status to other drugs, medicaments and biological substances; Z88.5 Allergy status to narcotic agent; Z79.899 Other long term (current) drug therapy; Z79.51 Long term (current) use of inhaled steroids
CPT/HCPCS: 99283

== ENCOUNTER 2019-03-12 14:37 | Inpatient (IN) | payer OTHER ==
[~2019-03-12] VITALS: Ht 165.1 cm; Wt 101.2 kg
[~2019-03-12 14:37] MED LIST changes: +PROBIOTIC1 EAC1 PO
[2019-03-12 15:05] LABS: BASOPHILS ABSOLUTE AUTO 0.04 K/mm3 (0.00-0.23); BASOPHILS PERCENT AUTO 0 % (0-2); EOSINOPHILS ABSOLUTE AUTO 0.08 K/mm3 (0.00-0.68); EOSINOPHILS PERCENT AUTO 1 % (0-6); Hematocrit 39.4 % (33.0-51.0); Hemoglobin 12.7 g/dL (11.5-16.0); IMMATURE GRAN ABSOLUTE AUTO 0.08 K/mm3 (0.00-0.10); IMMATURE GRAN PERCENT AUTO 1 % (0-1); LYMPHOCYTES ABSOLUTE AUTO 1.44 K/mm3 (0.84-5.20); LYMPHOCYTES PERCENT AUTO 10 % (21-46); MONOCYTES ABSOLUTE AUTO 0.58 K/mm3 (0.16-1.47); MONOCYTES PERCENT AUTO 4 % (4-13); Mean Corpuscular HGB 31.4 pg (26.0-34.0); Mean Corpuscular HGB Conc 32.2 g/dL (31.5-36.5); Mean Corpuscular Volume 98 fL (80-100); Mean Platelet Volume 9.8 fL (9.1-12.4); NEUTROPHILS ABSOLUTE AUTO 12.41 K/mm3 (1.96-9.15); NEUTROPHILS PERCENT AUTO 85 % (41-73); Platelet Count 244 K/mm3 (150-400); RDW Coefficient Variation 13.2 % (11.7-14.2); RDW Standard Deviation 47.8 fL (35.1-46.3); Red Blood Cell Count 4.04 M/mm3 (3.80-5.20); White Blood Cell Count 14.63 K/mm3 (4.00-11.30)
[2019-03-12 15:29] LABS: Alanine Aminotransfer (ALT/SGP 29 U/L (12-78); Albumin, Blood 3.7 g/dL (3.4-5.0); Albumin/Globulin Ratio 0.9 (0.8-1.8); Alk Phos 52 U/L (50-136); Anion Gap 6 mmol/L (6-16); Aspartate Aminotrans (AST/SGOT 16 U/L (12-37); Bilirubin, Total 0.2 mg/dL (0.1-1.0); Blood Urea Nitrogen 10 mg/dL (8-24); Bun/Creatinine Ratio 17.9 (12.0-20.0); CO2, Blood 28 mmol/L (21-32); Calcium, Blood 9.2 mg/dL (8.5-10.1); Chloride, Blood 103 mmol/L (98-108); Creatinine, Blood 0.56 mg/dL (0.40-1.00); Globulin, Blood 3.9 g/dL (2.2-4.0); Glomerular Filtration Rate >60 (60-); Glucose, Blood 141 mg/dL (70-99); Potassium, Blood 4.6 mmol/L (3.5-5.5); Sodium, Blood 137 mmol/L (136-145); Total Protein, Blood 7.6 g/dL (6.4-8.2)
[2019-03-12] MEDS ORDERED: VENL25 PO (19:48)
[2019-03-13 04:45] LABS: BASOPHILS ABSOLUTE AUTO 0.02 K/mm3 (0.00-0.23); BASOPHILS PERCENT AUTO 0 % (0-2); EOSINOPHILS ABSOLUTE AUTO 0.16 K/mm3 (0.00-0.68); EOSINOPHILS PERCENT AUTO 2 % (0-6); Hematocrit 34.9 % (33.0-51.0); Hemoglobin 11.2 g/dL (11.5-16.0); IMMATURE GRAN ABSOLUTE AUTO 0.05 K/mm3 (0.00-0.10); IMMATURE GRAN PERCENT AUTO 1 % (0-1); LYMPHOCYTES PERCENT AUTO 22 % (21-46); MONOCYTES ABSOLUTE AUTO 0.59 K/mm3 (0.16-1.47); MONOCYTES PERCENT AUTO 7 % (4-13); Mean Corpuscular HGB 32.3 pg (26.0-34.0); Mean Corpuscular HGB Conc 32.1 g/dL (31.5-36.5); Mean Platelet Volume 9.8 fL (9.1-12.4); NEUTROPHILS ABSOLUTE AUTO 6.08 K/mm3 (1.96-9.15); NEUTROPHILS PERCENT AUTO 69 % (41-73); Platelet Count 198 K/mm3 (150-400); RDW Coefficient Variation 13.3 % (11.7-14.2); Red Blood Cell Count 3.47 M/mm3 (3.80-5.20)
[2019-03-13 04:46] LABS: Mean Corpuscular Volume 101 fL (80-100)
[2019-03-13 05:01] LABS: Anion Gap 3 mmol/L (6-16); Blood Urea Nitrogen 11 mg/dL (8-24); Bun/Creatinine Ratio 16.6 (12.0-20.0); CO2, Blood 31 mmol/L (21-32); Calcium, Blood 8.8 mg/dL (8.5-10.1); Chloride, Blood 107 mmol/L (98-108); Creatinine, Blood 0.66 mg/dL (0.40-1.00); Glomerular Filtration Rate >60 (60-); Glucose, Blood 103 mg/dL (70-99); Potassium, Blood 4.1 mmol/L (3.5-5.5); Sodium, Blood 141 mmol/L (136-145)
--- NOTE | 2019-03-13 05:30 | NUR ---
SHIFT SUMMARY RECIEVED REPORT FROM [facility] @ 1913. ARRIVED MEDICAL FLOOR VIA STRETCHER @ 1939. MINIMAL ASSISTANCE FROM STRETCHER TO BED. ORIENTED TO ROOM AND CALL LIGHT. A/O, ABLE TO MAKE NEEDS KNOWN. COOPERATIVE WITH CARE. CALLS AND ANSWERS QUESTIONS APPROPRIATELY. C/O PAIN/DISCOMFORT; MEDICATED PER EMAR. RECIEVED ORDERS FOR 2 HOME MEDICATIONS THAT WERE STATED THAT PATIENT TAKES AT BEDTIME WELL A PRN ORDER FOR IBUPROFEN. SLIGHTLY HYPOTENSIVE; WILL RE-CHECK ALL OTHER VS WNL. 94% ON 1L O2; STATES BASELINE. NO ACUTE CHANGES. APPEARED TO REST MUCH OF NIGHT. BED IN LOWEST POSITION. CALL LIGHT AND BELONGINGS WITHIN REACH. WCTM. REPORT TO ISAAC CLEMONS.
--- NOTE | 2019-03-13 06:14 | NUR ---
0540 PHYSICIAN CORRESPONDENCE ALERTED ON-CALL MORNING VS; BP 94/70 HR 74. RE-CHK'D @ 0540; BP 90/57 HR 74. HOME DOSE OF LISINOPRIL GIVEN @ 2206. DR. SCHWARTZ STATED TO CONTINUE TO MONITOR.
--- NOTE | 2019-03-13 17:04 | NUR ---
PATIENT IS ALERT AND ORIENTED AND COOPERATIVE WITH CARE. SHE CALLS APPROPRIATELY. A CONSULT FOR DR. MAGAÑA WAS PLACED TODAY. DR. MAGAÑA CAME TO THE PATIENT'S ROOM AND DRAINED THE ABSCESS ON HER LEFT THIGH AT THE BEDSIDE. DR. MAGAÑA INSTRUCTED THIS RN AND THE PATIENT THAT THE GAUZE IN THE WOUND SHOULD BE REMOVED TOMORROW AND CLEANED IN THE SHOWER WITH SOAP AND WATER. A PHOTO OS THE CELLULITIS AND ABSCESS WAS TAKEN THIS MORNING BEFORE DR. MAGAÑA DRAINED IT. WILL CONTINUE TO MONITOR.
--- NOTE | 2019-03-14 04:40 | NUR ---
SHIFT SUMMARY A/O, ABLE TO MAKE NEEDS KNOWN. COOPERATIVE WITH CARE. CALLS AND ANSWERS QUESTIONS APPROPRIATELY. INDEPENDENT IN THE ROOM. C/O PAIN/DISCOMFORT TO L HIP/THIGH. VSS/AFEBRILE. APPEARED TO REST MUCH OF SHIFT. TOOK OFF DRESSING AND REPLACED WITH NEW EXUDRY DRESSING WITH MEDIPORE TAPE. RE-MARKED THE BOUNDARY OF ERYTHEMA. NO ACUTE CHANGES OVERNIGHT. BED IN LOWEST POSITION. CALL LIGHT AND BELONINGS WITHIN REACH. WCTM. REPORT TO ONCOMING RN.
[2019-03-14 06:03] LABS: Vancomycin, Trough 7.2 ug/mL (5.0-10.0)
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
[2019-03-14] MEDS ORDERED: BACTRIM DS TAB1 EACH PO (17:44)
--- NOTE | 2019-03-14 18:18 | NUR ---
PT DCD HOME. MED REC FAXED TO [facility] IN [place] PER PT REQUEST. ALL INSTRUCTIONS REVIEWED WITH PT WHO VERBALIZED AN UNDERSTANDING. [facility] SCHEDULED F/U APPTS AND NOTIFIED PT OF DATES AND TIMES. IV REMOVED WITH NO ISSUES. ALL PERSONAL BELONGINGS SENT WITH PT. PT STABLE UPON DC.
== END 2019-03-14 18:19 | disposition home or self-care (01) | DRG 603 ==
LOC: ER 14:37 → MEDS 18:12 → ENPENDDIS 03-14 15:56 → MEDS 03-14 18:19
PROVIDERS: Physician Assistant; ADMIT Internal Medicine
PROC: 0Y980ZZ Drainage of Left Femoral Region, Open Approach (ICD-10-PCS; principal; 2019-03-13)
DX: L02.416 Cutaneous abscess of left lower limb (principal); J96.11 Chronic respiratory failure with hypoxia; L03.116 Cellulitis of left lower limb; J44.9 Chronic obstructive pulmonary disease, unspecified; F41.8 Other specified anxiety disorders; B95.62 Methicillin resistant Staphylococcus aureus infection as the cause of diseases classified elsewhere; Z99.81 Dependence on supplemental oxygen; I10 Essential (primary) hypertension; E78.5 Hyperlipidemia, unspecified; G89.29 Other chronic pain; M54.5 Low back pain; F17.210 Nicotine dependence, cigarettes, uncomplicated
CPT/HCPCS: 36415; 76882; 80048; 80053; 80202; 83605; 85025; 87070; 87081; 87205; 94640; 94760; 96365; 96366; 96375; 99283; 99285-25; A9270-GY; J0696; J1170; J1650; J2405; J3370; J7050; J7120

== ENCOUNTER 2019-12-15 11:15 | Emergency (ER) | payer OTHER ==
[~2019-12-15] VITALS: Ht 165.1 cm; Wt 81.7 kg
[~2019-12-15 11:15] MED LIST changes: -ALBU2.5V5 INH; +BACTRIM DS TAB1 EACH PO; +ESCI20 PO; +IPRAT-ALBUT 0.5-3 ML NEB; +SPIRIVA RESPIMAT4 G3 INH; -SPIRIVA RESPIMAT4 GM INH; +VENL25 PO
[2019-12-15] MEDS ORDERED: TRAM50 PO (12:53)
[2019-12-15 13:11] LABS: BASOPHILS ABSOLUTE AUTO 0.06 K/mm3 (0.00-0.23); BASOPHILS PERCENT AUTO 1 % (0-2); EOSINOPHILS ABSOLUTE AUTO 0.12 K/mm3 (0.00-0.68); EOSINOPHILS PERCENT AUTO 1 % (0-6); Hematocrit 43.3 % (33.0-51.0); Hemoglobin 13.8 g/dL (11.5-16.0); IMMATURE GRAN ABSOLUTE AUTO 0.04 K/mm3 (0.00-0.10); IMMATURE GRAN PERCENT AUTO 0 % (0-1); LYMPHOCYTES ABSOLUTE AUTO 2.54 K/mm3 (0.84-5.20); LYMPHOCYTES PERCENT AUTO 26 % (21-46); MONOCYTES ABSOLUTE AUTO 0.55 K/mm3 (0.16-1.47); MONOCYTES PERCENT AUTO 6 % (4-13); Mean Corpuscular HGB 30.5 pg (26.0-34.0); Mean Corpuscular HGB Conc 31.9 g/dL (31.5-36.5); Mean Corpuscular Volume 96 fL (80-100); Mean Platelet Volume 9.1 fL (9.1-12.4); NEUTROPHILS ABSOLUTE AUTO 6.61 K/mm3 (1.96-9.15); NEUTROPHILS PERCENT AUTO 67 % (41-73); Platelet Count 339 K/mm3 (150-400); RDW Coefficient Variation 12.8 % (11.7-14.2); RDW Standard Deviation 45.2 fL (35.1-46.3); Red Blood Cell Count 4.53 M/mm3 (3.80-5.20); White Blood Cell Count 9.92 K/mm3 (4.00-11.30)
[2019-12-15 13:36] LABS: Alanine Aminotransfer (ALT/SGP 32 U/L (12-78); Albumin, Blood 3.4 g/dL (3.4-5.0); Albumin/Globulin Ratio 0.9 (0.8-1.8); Alk Phos 59 U/L (50-136); Anion Gap 6 mmol/L (6-16); Aspartate Aminotrans (AST/SGOT 14 U/L (12-37); Bilirubin, Total 0.1 mg/dL (0.1-1.0); Blood Urea Nitrogen 13 mg/dL (8-24); Bun/Creatinine Ratio 26.9 (12.0-20.0); CO2, Blood 29 mmol/L (21-32); Calcium, Blood 9.4 mg/dL (8.5-10.1); Chloride, Blood 104 mmol/L (98-108); Creatinine, Blood 0.48 mg/dL (0.40-1.00); Globulin, Blood 3.9 g/dL (2.2-4.0); Glomerular Filtration Rate >60 (60-); Glucose, Blood 99 mg/dL (70-99); Potassium, Blood 4.4 mmol/L (3.5-5.5); Sodium, Blood 139 mmol/L (136-145); Total Protein, Blood 7.3 g/dL (6.4-8.2); Troponin I <0.015 ng/mL (0.000-0.040)
[2019-12-15] MEDS ORDERED: ALBU90OI6 INH (14:03)
[2019-12-15] MEDS ORDERED: FLUTICASONE-SA1 EAC2 INH (14:07)
[2019-12-15] MEDS ORDERED: METPRE4DP PO (14:36)
[2019-12-15] MEDS ORDERED: AZIT250 PO (14:36)
== END 2019-12-15 14:44 | disposition home or self-care (01) ==
LOC: ER 11:15
PROVIDERS: Emergency Medicine
DX: J44.1 Chronic obstructive pulmonary disease with (acute) exacerbation (principal); F17.290 Nicotine dependence, other tobacco product, uncomplicated; Z20.828 Contact with and (suspected) exposure to other viral communicable diseases; Z79.899 Other long term (current) drug therapy
CPT/HCPCS: 36415; 71046; 80053; 83880; 84484; 85025; 93005; 93010; 94640; 96374; 99284-25; J2930; U0004

== ENCOUNTER → 2020-05-02 | Outpatient (CLI) | payer OTHER ==
[~2020-05-02] MED LIST changes: +AMOCLA875 PO; +AZIT250 PO; +FLUTICASONE-SA1 EAC2 INH; +METPRE4DP PO
== END | disposition home or self-care (01) ==
LOC: LAB SHORT 13:45 → LAB 13:45
DX: R05 Cough (principal)
CPT/HCPCS: 87070; 87205

== ENCOUNTER 2020-05-11 13:57 | Emergency (ER) | payer OTHER ==
[~2020-05-11] VITALS: Ht 165.1 cm; Wt 82.1 kg
[~2020-05-11 13:57] MED LIST changes: -AMOCLA875 PO
[2020-05-11 14:39] LABS: BASOPHILS ABSOLUTE AUTO 0.05 K/mm3 (0.00-0.23); BASOPHILS PERCENT AUTO 0 % (0-2); EOSINOPHILS ABSOLUTE AUTO 0.15 K/mm3 (0.00-0.68); EOSINOPHILS PERCENT AUTO 1 % (0-6); Hematocrit 38.7 % (33.0-51.0); Hemoglobin 12.9 g/dL (11.5-16.0); IMMATURE GRAN ABSOLUTE AUTO 0.06 K/mm3 (0.00-0.10); IMMATURE GRAN PERCENT AUTO 0 % (0-1); LYMPHOCYTES ABSOLUTE AUTO 1.39 K/mm3 (0.84-5.20); LYMPHOCYTES PERCENT AUTO 9 % (21-46); MONOCYTES PERCENT AUTO 6 % (4-13); Mean Corpuscular HGB 31.9 pg (26.0-34.0); Mean Corpuscular HGB Conc 33.3 g/dL (31.5-36.5); Mean Corpuscular Volume 96 fL (80-100); Mean Platelet Volume 9.6 fL (9.1-12.4); NEUTROPHILS ABSOLUTE AUTO 13.43 K/mm3 (1.96-9.15); NEUTROPHILS PERCENT AUTO 84 % (41-73); Platelet Count 254 K/mm3 (150-400); RDW Coefficient Variation 13.6 % (11.7-14.2); RDW Standard Deviation 48.1 fL (35.1-46.3); Red Blood Cell Count 4.05 M/mm3 (3.80-5.20); White Blood Cell Count 16.08 K/mm3 (4.00-11.30)
[2020-05-11 14:57] LABS: Alanine Aminotransfer (ALT/SGP 42 U/L (12-78); Albumin, Blood 3.3 g/dL (3.4-5.0); Albumin/Globulin Ratio 0.9 (0.8-1.8); Alk Phos 67 U/L (50-136); Anion Gap 8 mmol/L (6-16); Aspartate Aminotrans (AST/SGOT 16 U/L (12-37); Bilirubin, Total 0.4 mg/dL (0.1-1.0); Blood Urea Nitrogen 7 mg/dL (8-24); Bun/Creatinine Ratio 14.1 (12.0-20.0); CO2, Blood 27 mmol/L (21-32); Calcium, Blood 8.8 mg/dL (8.5-10.1); Chloride, Blood 104 mmol/L (98-108); Globulin, Blood 3.5 g/dL (2.2-4.0); Glomerular Filtration Rate >60 (60-); Glucose, Blood 109 mg/dL (70-99); Potassium, Blood 3.6 mmol/L (3.5-5.5); Sodium, Blood 139 mmol/L (136-145); Total Protein, Blood 6.8 g/dL (6.4-8.2)
[2020-05-11] MEDS ORDERED: AMOCLA875 PO (15:55)
== END 2020-05-11 16:00 | disposition home or self-care (01) ==
LOC: ER 13:57
PROVIDERS: Physician Assistant
DX: J02.9 Acute pharyngitis, unspecified (principal); Z79.899 Other long term (current) drug therapy; Z88.5 Allergy status to narcotic agent; Z88.8 Allergy status to other drugs, medicaments and biological substances; J44.9 Chronic obstructive pulmonary disease, unspecified; Z87.891 Personal history of nicotine dependence
CPT/HCPCS: 36415; 70491; 71045; 80053; 85025; 93005; 93010; 96374-59; 99284-25; A9270; J1100; Q9967

== ENCOUNTER 2020-07-01 17:32 | Emergency (ER) | payer OTHER ==
[~2020-07-01] VITALS: Ht 165.1 cm; Wt 77.1 kg
[2020-07-01 17:56] LABS: BASOPHILS ABSOLUTE AUTO 0.07 K/mm3 (0.00-0.23); BASOPHILS PERCENT AUTO 1 % (0-2); EOSINOPHILS ABSOLUTE AUTO 0.29 K/mm3 (0.00-0.68); EOSINOPHILS PERCENT AUTO 4 % (0-6); Hematocrit 40.8 % (33.0-51.0); Hemoglobin 13.3 g/dL (11.5-16.0); IMMATURE GRAN ABSOLUTE AUTO 0.02 K/mm3 (0.00-0.10); IMMATURE GRAN PERCENT AUTO 0 % (0-1); LYMPHOCYTES ABSOLUTE AUTO 2.64 K/mm3 (0.84-5.20); LYMPHOCYTES PERCENT AUTO 34 % (21-46); MONOCYTES ABSOLUTE AUTO 0.55 K/mm3 (0.16-1.47); MONOCYTES PERCENT AUTO 7 % (4-13); Mean Corpuscular HGB 30.8 pg (26.0-34.0); Mean Corpuscular HGB Conc 32.6 g/dL (31.5-36.5); Mean Corpuscular Volume 94 fL (80-100); Mean Platelet Volume 9.3 fL (9.1-12.4); NEUTROPHILS ABSOLUTE AUTO 4.16 K/mm3 (1.96-9.15); NEUTROPHILS PERCENT AUTO 54 % (41-73); Platelet Count 378 K/mm3 (150-400); RDW Coefficient Variation 12.3 % (11.7-14.2); RDW Standard Deviation 43.2 fL (35.1-46.3); Red Blood Cell Count 4.32 M/mm3 (3.80-5.20); White Blood Cell Count 7.73 K/mm3 (4.00-11.30)
[2020-07-01 18:15] LABS: Alanine Aminotransfer (ALT/SGP 41 U/L (12-78); Albumin, Blood 3.7 g/dL (3.4-5.0); Alk Phos 62 U/L (50-136); Anion Gap 3 mmol/L (6-16); Aspartate Aminotrans (AST/SGOT 21 U/L (12-37); Bilirubin, Total 0.2 mg/dL (0.1-1.0); Blood Urea Nitrogen 10 mg/dL (8-24); Bun/Creatinine Ratio 12.8 (12.0-20.0); CO2, Blood 30 mmol/L (21-32); Calcium, Blood 9.4 mg/dL (8.5-10.1); Chloride, Blood 108 mmol/L (98-108); Creatinine, Blood 0.78 mg/dL (0.40-1.00); Globulin, Blood 3.8 g/dL (2.2-4.0); Glomerular Filtration Rate >60 (60-); Glucose, Blood 110 mg/dL (70-99); Sodium, Blood 141 mmol/L (136-145); Total Protein, Blood 7.5 g/dL (6.4-8.2)
== END 2020-07-01 18:04 | disposition left against medical advice (07) ==
LOC: ER 17:32
PROVIDERS: Physician Assistant
DX: R10.9 Unspecified abdominal pain (principal); Z53.21 Procedure and treatment not carried out due to patient leaving prior to being seen by health care provider; Z79.899 Other long term (current) drug therapy
CPT/HCPCS: 80053; 82150; 83690; 85025; 99283

== ENCOUNTER → 2020-07-01 | Outpatient (CLI) | payer OTHER ==
[~2020-07-01] MED LIST changes: +AMOCLA875 PO
[2020-07-01 16:12] LABS: BASOPHILS ABSOLUTE AUTO 0.05 K/mm3 (0.00-0.23); BASOPHILS PERCENT AUTO 1 % (0-2); EOSINOPHILS ABSOLUTE AUTO 0.28 K/mm3 (0.00-0.68); EOSINOPHILS PERCENT AUTO 4 % (0-6); Hematocrit 43.3 % (33.0-51.0); Hemoglobin 14.2 g/dL (11.5-16.0); IMMATURE GRAN ABSOLUTE AUTO 0.02 K/mm3 (0.00-0.10); IMMATURE GRAN PERCENT AUTO 0 % (0-1); LYMPHOCYTES ABSOLUTE AUTO 2.24 K/mm3 (0.84-5.20); LYMPHOCYTES PERCENT AUTO 32 % (21-46); MONOCYTES ABSOLUTE AUTO 0.51 K/mm3 (0.16-1.47); MONOCYTES PERCENT AUTO 7 % (4-13); Mean Corpuscular HGB 30.8 pg (26.0-34.0); Mean Corpuscular HGB Conc 32.8 g/dL (31.5-36.5); Mean Corpuscular Volume 94 fL (80-100); Mean Platelet Volume 9.5 fL (9.1-12.4); NEUTROPHILS ABSOLUTE AUTO 3.86 K/mm3 (1.96-9.15); NEUTROPHILS PERCENT AUTO 56 % (41-73); Platelet Count 392 K/mm3 (150-400); RDW Coefficient Variation 12.5 % (11.7-14.2); RDW Standard Deviation 43.3 fL (35.1-46.3); Red Blood Cell Count 4.61 M/mm3 (3.80-5.20); White Blood Cell Count 6.96 K/mm3 (4.00-11.30)
[2020-07-01 16:24] LABS: Alanine Aminotransfer (ALT/SGP 47 U/L (12-78); Alk Phos 68 U/L (40-126); Amylase, Blood 58 U/L (25-115); Anion Gap 8 mmol/L (6-16); Aspartate Aminotrans (AST/SGOT 23 U/L (12-37); Bilirubin, Total 0.2 mg/dL (0.1-1.0); Blood Urea Nitrogen 12 mg/dL (8-24); Bun/Creatinine Ratio 13.2 (12.0-20.0); CO2, Blood 33 mmol/L (21-32); Calcium, Blood 9.7 mg/dL (8.5-10.1); Chloride, Blood 100 mmol/L (98-108); Creatinine, Blood 0.91 mg/dL (0.40-1.00); Globulin, Blood 4.1 g/dL (2.2-4.0); Glomerular Filtration Rate >60 (60-); Glucose, Blood 113 mg/dL (70-99); Potassium, Blood 3.7 mmol/L (3.5-5.5); Sodium, Blood 141 mmol/L (136-145); Total Protein, Blood 8.1 g/dL (6.4-8.2)
== END | disposition home or self-care (01) ==
LOC: LAB EV 16:09 → LAB SHORT 16:09
PROVIDERS: General Practice
DX: R10.9 Unspecified abdominal pain (principal)
CPT/HCPCS: 80053; 82150; 85025